=== PATIENT | female | born 1995 | race Caucasian/White ===

== ENCOUNTER → 2016-08-16 | Emergency (ER) | payer BC, OTHER ==
[~2016-08-16] VITALS: Ht 172.7 cm; Wt 65.5 kg
[~2016-08-16] MED LIST: GUAIFENESIN/CODEINE 100MG-10MG/5ML SYRUP (ROBITUSSIN AC) 5 ML UDC PO ONE; methylPREDNISolone 80 MG/ML (DEPO MEDROL) VIAL IM ONE
[2016-08-17 00:10] VITALS: BP 120/74
== END | disposition home or self-care (01) ==
LOC: ED 21:34
DX: J45.901 Unspecified asthma with (acute) exacerbation (principal)
CPT/HCPCS: 71020; 96372; 99282; J1040; 99283